=== PATIENT | male | born 1970 | race Caucasian/White ===

== ENCOUNTER 2024-06-25 00:05 | Day surgery (SDC) | payer BC, SELFPAY ==
--- NOTE | 2024-06-18 11:41 | PC.NURSE ---
Report to the Outpatient Waiting Room, entrance under the green pavilion located off [facility], at time _0730_ on date _[id number]_. Planned Procedure Time: _0930_.? Time changes happen often and if your time is changed the preop area will call you the afternoon before. - You and your visitor will be asked to self-screen and do not enter if you have any COVID symptoms. Please call surgeon if you need to reschedule. - A mask is optional within the hospital at this time. Patients may have clear liquids (water, carbonated beverages, clear teas, apple juice) until 3 hours prior to surgery with a maximum of 20 ounces. - No food from midnight until time of surgery and no smoking. This includes no chewing gum, candy or mints. Take only the following medications with a SIP of water on the morning of surgery: ____None____ DO NOT STOP ANY OF YOUR OTHER PRESCRIPTION MEDICATIONS PRIOR TO SURGERY EXCEPT THE FOLLOWING Medications to discontinue per physician None Date to take last dose Please no make-up, nail tanzanian, hairspray, perfume, deodorant, or body powder the day of surgery.? No jewelry (including any body piercings) or valuables the day of surgery, leave them at home.? Please take a shower or bath the night before, or the morning of, surgery with an antibacterial soap.? Wear comfortable, loose fitting clothing.? - Jewelry must be removed prior to entering the operating room.? Rings and piercings that are not removed may be cut off. - The hospital will not accept responsibility for valuables.? - Please leave all valuables, including medications, at home the day of surgery. If you are going home after surgery, a licensed oil transport driver must drive you home.? - NO public transportation without another adult if you receive anesthesia. - We recommend that an adult stay with you for 24 hours following discharge. - We also recommend that you do not drive, make important decision, drink alcoholic beverages, or take any drugs that were not prescribed by your health care provider for at least 24 hours after your discharge time. Follow any additional instructions given to you from your surgeon. Telephone instructions given to __Bob__and asked if any additional questions and then verbalized understanding. Patient advised to call surgeon office or pre surgery nurse liaison [phone] if any additional questions.
[2024-06-18 11:43] VITALS: BMI 25.7
[2024-06-25] VITALS (9 sets, daily range): BP systolic 94–132; BP diastolic 63–94; PULSE 67–85; RESP 16–18; TEMP 36.1–36.5; O2SAT 94–100; BMI 25.4
--- NOTE | ~2024-06-25 | XR_ITS ---
EXAMINATION: XR surgery orthopedic DATE: 06/25/2024 11:51 INDICATION: Right-sided hallux valgus. TECHNIQUE: 5 intraoperative fluoroscopic views of right foot were obtained. I was not present. Fluoro scopy exposure time was 24 seconds. COMPARISON: Right foot radiographs 05/27/2024 FINDINGS: There are changes of bunionectomy. There is an osteotomy of first proximal phalanx with sta ple fixation. There are changes of arthrodesis of second proximal interphalangeal joint with instrume ntation. There is an acute transverse fracture of neck of fourth metatarsal. There is a wire in the t hird digit phalanges and distal metatarsal. There is a wire in the fourth digit phalanges and head of the metatarsal. There is a wire in the fifth digit metatarsals. IMPRESSION: 1. Acute transverse fracture of neck of fourth metatarsal. 2. Surgical changes of the foot. Reviewed, dictated and finalized at location A. RAPHIC ANALYST
--- NOTE | 2024-06-25 07:17 | WPDHPUPDATE1 ---
History and Physical Update Update Date/Time: 06/25/24 07:17 History and Physical has been reviewed, including an updated exam of the patient. There are NO changes in the patient's condition. Risks, benefits, and alternatives have been discussed and questions answered. Patient agrees to proceed with procedure.
--- NOTE | 2024-06-25 07:37 | ECG_ITS ---
Test Date: 2024-06-25 08:10:14 Measurements Intervals [place] Rate: 68 P: 48 CT: 165 QRS: 44 QRSD: 93 T: 44 QT: 381 QTc: 408 Interpretive Statements SINUS RHYTHM No previous ECG available for comparison Electronically Signed On 06-26-2024 16:29:01 [employer]OLD [employer]AMPER by Justin Brown M.D.
[2024-06-25] MEDS: LACTATED RINGERS 1,000 ML 30 ML IV CONT (08:04)
[2024-06-25] MEDS: ACETAMINOPHEN 500 MG TABLET 1000 MG PO (08:04)
[2024-06-25] MEDS: KETOROLAC 15 MG/ML VIAL (*BKC) IV PUSH (08:05)
--- NOTE | 2024-06-25 08:18 | WPDANESEPP ---
Anes - Eval Pre Procedure Procedure: Operation Date: 06/25/24 09:30 Proposed Procedures p Right Hallux Valgus Correction, Phalangeal Interphalangeal Arthrodesis Second, Third, Fourth and Fifth Toes, - Ariel Mcintosh MD s Excision of Sural Nerve, Excision of Fourth Metatarsal Plantar Condyle, Achilles Lengthening - Ariel Mcintosh MD Date/Time: 06/25/24 08:18 Pre Op Diagnosis: rt. hallux valgus, claw toes, achilles contracture Patient Data Age: 53 Gender: M Height: 1.85 m Weight: 88.6 kg Last Vital Signs Temp 97.0 F L 06/25/24 07:10 Pulse 80 06/25/24 07:10 Resp 16 06/25/24 07:10 BP 110/86 06/25/24 07:10 Pulse Ox 100 06/25/24 07:10 O2 Del Method Room Air 06/25/24 07:10 Allergies Allergy/AdvReac Type Severity Reaction Status Date / Time No Known Allergies Allergy Verified 06/25/24 07:42 Home Medications ?Medication ?Instructions ?Recorded ?Confirmed ?Type No Home Medications 05/27/24 06/18/24 History Patient hx anesthesia problems: none Family hx anesthesia problems: none Results Review: All pre-operative results and documents have been reviewed as part of the pre-operative evaluation. 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
[2024-06-25] MEDS: ceFAZolin 2 GM/D5W 50 ML 2 GM/50 ML BAG IVPB (09:19)
--- NOTE | 2024-06-25 09:35 | P.PNAN_ITS ---
Anes - Eval Final PreProcedure Day of Procedure 06/25/24 09:35 Patient weight: overweight Heart: regular rate and rhythm Lungs: decreased breath sounds Airway: Mallampati scale class 1 Neurological: alert and oriented Last oral intake: >/= 8 hours ASA classification: II Emergent: no Anesthetic plan: proceed Anesthesia type and monitoring: general LMA Results Review: All pre-operative results and documents have been reviewed as part of the pre- operative evaluation. Informed Consent: The patient's anesthetic plan and its attendant risks and benefits were discussed with the patient/family/POA. Questions were solicited and answers provided to the satisfaction of the patient/family/POA.
[2024-06-25] MEDS: BUPivacaine HCL 0.5% 10 ML AMP 20 ML INFILTRATE (10:25)
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
--- NOTE | 2024-06-25 12:30 | SUR.PHASEI ---
1225 - dr. willoughbybing at bedside assessing pt
--- NOTE | 2024-06-25 13:50 | SUR.PHASEII ---
1325 Dr Mcintosh notified of moderate amount of sanguineous drainage on dressing above second and third toes. Per Dr. Mcintosh this no cause for concern and an expected finding when patient ambulates; dressing may be reinforced. 1335 [employer]S DELIVERY DRIVER in OP room to reinforce dressing.
== END 2024-06-25 13:45 | disposition home or self-care (01) ==
PROVIDERS: PCP Family Medicine; Visit Provider Orthopaedic Surgery
PROC: (CPT 28299; principal; 2024-06-25 09:30)
PROC: (CPT 28750; 2024-06-25 09:30)
DX: M20.11 Hallux valgus (acquired), right foot (principal); M20.5X1 Other deformities of toe(s) (acquired), right foot; G57.81 Other specified mononeuropathies of right lower limb; M89.8X7 Other specified disorders of bone, ankle and foot; M67.01 Short Achilles tendon (acquired), right ankle; F17.210 Nicotine dependence, cigarettes, uncomplicated; Z98.890 Other specified postprocedural states; Z80.9 Family history of malignant neoplasm, unspecified
CPT/HCPCS: 28299; 28285 ×4; 27605; 28308; 93005; 99199; A9270; C1713; J0690; J1100; J1171; J1885; J2003; J2250; J2405; J2704; J3010; J7120